=== PATIENT | male | born 1995 | race Caucasian/White ===

== ENCOUNTER 2017-02-20 21:38 | Emergency (ER) | payer OTHER ==
[~2017-02-20] VITALS: Ht 165.1 cm; Wt 68.0 kg
[2017-02-20 21:40] VITALS: BP 139/80
[2017-02-20] MEDS ORDERED: predniSONE 20 MG TABLET PO ONE (22:30)
[2017-02-20 22:49] LABS: INFLUENZA A PATIENT NEGATIVE (NEGATIVE); INFLUENZA B PATIENT NEGATIVE (NEGATIVE)
--- NOTE | 2017-02-20 23:05 | ED.ADGEN ---
Past History Past Medical History: No Pertinent History Past Surgical History: No Surgical History Alcohol Use: Occasionally Drug Use: None Adult General Chief Complaint Chief Complaint " ..I ve got a cough.. and sore throat.." [facility] HPI Patient is a 21 year old male who presents with complaints of sore throat, cough and fever. Patient normally healthy. No history of travel. No history of ill contacts other than family members. Patient is normally healthy. Review of Systems Review of Systems Constitutional: Subjective fever or chills [] Eyes: Denies change in visual acuity, redness, or eye pain [] HENT: History nasal congestion or sore throat [] Respiratory: History cough and wheezing Cardiovascular: No additional information not addressed in HPI [] GI: Denies abdominal pain, nausea, vomiting, bloody stools or diarrhea [] : Denies dysuria or hematuria [] Musculoskeletal: Denies back pain or joint pain [] Integument: Denies rash or skin lesions [] Neurologic: Denies headache, focal weakness or sensory changes [] Endocrine: Denies polyuria or polydipsia [] Family History Family History FAMILY members have colds Current Medications Current Medications Current Medications Medications (Trade) Dose Ordered Sig/Sagar Start Time Stop Time Status Last Admin Dose Admin Prednisone (Prednisone) 50 mg 1X ONCE 02/20/17 22:30 02/20/17 22:31 DC 02/20/17 22:20 50 MG Allergies Allergies Allergies Coded Allergies Type Severity Reaction Last Updated Verified camphor Allergy Unknown 02/20/17 Yes eucalyptus Allergy Unknown 02/20/17 Yes menthol Allergy Unknown 02/20/17 Yes petrolatum,white Allergy Unknown 02/20/17 Yes turpentine oil Allergy Unknown 02/20/17 Yes Physical Exam Physical Exam Constitutional: Well developed, well nourished, no acute distress, non-toxic appearance. [] HENT: Normocephalic, atraumatic, bilateral external ears normal, oropharynx moist, injected pharynx, no oral exudates, nose clear rhinorrhea Eyes: PERRLA, EOMI, conjunctiva normal, no discharge. [] Neck: Normal range of motion, no tenderness, supple, no stridor. [] Cardiovascular:Heart rate regular rhythm, no murmur [] Lungs & Thorax: Bilateral breath sounds equal with few scattered wheezes auscultation [] Abdomen: Bowel sounds normal, soft, no tenderness, no masses, no pulsatile masses. [] Skin: Warm, dry, no erythema, no rash. [] Back: No tenderness, no CVA tenderness. [] Extremities: No tenderness, no cyanosis, no clubbing, ROM intact, no edema. [] Neurologic: Alert and oriented X 3, normal motor function, normal sensory function, no focal deficits noted. [] Psychologic: Affect normal, judgement normal, mood normal. [] Current Patient Data Vital Signs Vital Signs Date Time Temp Pulse Resp B/P (MAP) Pulse Ox O2 Delivery O2 Flow Rate FiO2 02/20/17 21:40 98.7 107 20 98 Room Air Lab Results Laboratory Tests Test 02/20/17 22:00 Influenza Type A (Rapid) Negative (NEGATIVE) Influenza Type B (Rapid) Negative (NEGATIVE) Group A Streptococcus Rapid Negative (NEGATIVE) EKG EKG [] Radiology/Procedures Radiology/Procedures [] Course & Med Decision Making Course & Med Decision Making Pertinent Labs and Imaging studies reviewed. (See chart for details) Negative study for strep and influenza Patient to gargle 4 times with Listerine. Patient take [id number] Benadryl for drainage. Patient take [id number] Tylenol ibuprofen for discomfort. Follow-up primary care. [] Final Impression Final Impression 1. Upper respiratory infection-Viral syndrome[] Problems: Dragon Disclaimer Dragon Disclaimer This electronic medical record was generated, in whole or in part, using a voice recognition dictation system. KT PARDO MD Feb 20, 2017 23:05
== END 2017-02-20 23:00 | disposition home or self-care (01) ==
LOC: ER 21:38
DX: J06.9 Acute upper respiratory infection, unspecified (principal); B34.9 Viral infection, unspecified; Z88.8 Allergy status to other drugs, medicaments and biological substances; Z91.018 Allergy to other foods; Z91.048 Other nonmedicinal substance allergy status
CPT/HCPCS: 87070; 87804; 87880; 99284; J7512

== ENCOUNTER 2017-05-24 16:40 | Emergency (ER) | payer OTHER ==
[~2017-05-24] VITALS: Ht 175.3 cm; Wt 86.2 kg
--- NOTE | 2017-05-24 17:15 | PHYS DOC ---
Past History Past Medical History: No Pertinent History Past Surgical History: No Surgical History Alcohol Use: Occasionally Drug Use: None Adult General Chief Complaint Chief Complaint: SORE THROAT HPI HPI 21-year-old male patient complaining of sore throat for the 2 weeks with subjective fever for the last few days without cough, runny nose, earache, shortness of breath, nausea and vomiting, sick contact. Patient states he gets sore throats frequently. 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 Review of Systems Review of Systems Constitutional: Reports fever Eyes: Denies change in visual acuity, redness, or eye pain [] HENT: Denies nasal congestion , reports sore throat Respiratory: Denies cough or shortness of breath [] Cardiovascular: No additional information not addressed in HPI [] GI: Denies abdominal pain, nausea, vomiting, bloody stools or diarrhea [] : Denies dysuria or hematuria [] Musculoskeletal: Denies back pain or joint pain [] Integument: Denies rash or skin lesions [] Neurologic: Denies headache, focal weakness or sensory changes [] Endocrine: Denies polyuria or polydipsia [] All other systems were reviewed and found to be within normal limits, except as documented in this note. Allergies Allergies Allergies Coded Allergies Type Severity Reaction Last Updated Verified camphor Allergy Unknown 02/20/17 Yes eucalyptus Allergy Unknown 02/20/17 Yes menthol Allergy Unknown 02/20/17 Yes petrolatum,white Allergy Unknown 02/20/17 Yes turpentine oil Allergy Unknown 02/20/17 Yes Physical Exam Physical Exam Constitutional: Well developed, well nourished, mild distress, non-toxic appearance. [] HENT: Normocephalic, atraumatic, bilateral external ears normal, oropharynx moist, bilateral tonsilar enlargement with exudates, nose normal. [] Eyes: PERRLA, EOMI, conjunctiva normal, no discharge. [] Neck: Normal range of motion, no tenderness, supple, no stridor, cervical lymphadenopathy. [] Cardiovascular:Heart rate regular rhythm, no murmur [] Lungs & Thorax: Bilateral breath sounds clear to auscultation [] Abdomen: Bowel sounds normal, soft, no tenderness, no masses, no pulsatile masses. [] Skin: Warm, dry, no erythema, no rash. [] Back: No tenderness, no CVA tenderness. [] Extremities: No tenderness, no cyanosis, no clubbing, ROM intact, no edema. [] Neurologic: Alert and oriented X 3, normal motor function, normal sensory function, no focal deficits noted. [] Psychologic: Affect normal, judgement normal, mood normal. [] EKG EKG [] Radiology/Procedures Radiology/Procedures [] Course & Med Decision Making Course & Med Decision Making Pertinent Labs and Imaging studies reviewed. (See chart for details) [] Dragon Disclaimer Dragon Disclaimer This electronic medical record was generated, in whole or in part, using a voice recognition dictation system. Departure Departure: Impression: Primary Impression: Strep pharyngitis Disposition: HOME, SELF-CARE (At 1750) Condition: IMPROVED Referrals: PCP,NO (PCP) Patient Instructions: Strep Throat MARIA DE JESUS GILES MD May 24, 2017 17:15
[2017-05-24] MEDS ORDERED: PENICILLIN G BENZATHINE LA 1,200,000 UNIT/2 ML DISP.SYRIN. IM ONE (17:30)
[2017-05-24] MEDS ORDERED: IBUPROFEN 800 MG TABLET. PO ONE (17:30)
[2017-05-24 18:14] VITALS: BP 128/62
== END 2017-05-24 18:00 | disposition home or self-care (01) ==
LOC: ER 16:40
DX: J02.0 Streptococcal pharyngitis (principal); Z88.8 Allergy status to other drugs, medicaments and biological substances; Z91.048 Other nonmedicinal substance allergy status
CPT/HCPCS: 87880; 96372; 99283; J0561

== ENCOUNTER 2017-09-08 20:33 | Emergency (ER) | payer OTHER ==
[~2017-09-08] VITALS: Ht 175.3 cm; Wt 90.7 kg
[2017-09-08 20:47] VITALS: BP 129/79
[2017-09-08] MEDS ORDERED: TRAM-48 PO (21:08)
[2017-09-08] MEDS ORDERED: IBUP600T16 PO (21:08)
[2017-09-08] MEDS ORDERED: CEPH-264 PO (21:08)
--- NOTE | 2017-09-08 21:09 | PHYS DOC ---
Past History Past Medical History: No Pertinent History Past Surgical History: No Surgical History Alcohol Use: None Drug Use: None Adult General Chief Complaint Chief Complaint: DENTAL PROBLEM HPI HPI Patient is a 22-year-old gentleman who presents here today with his pain to his right upper molar with significant cavitary lesion. Patient reports he does not have an appointment for a dentist until 1 month now. Patient is requesting assistance for pain. Patient reports swelling to his gums and swelling to his right cheek. Patient denies any other symptomology. Patient has any fevers shakes chills nausea vomiting diarrhea. Patient has any difficulty opening her children. Review of systems: Constitutional: Denies fever or chills Eyes: Denies change in visual acuity, redness, or eye pain HENT: Denies nasal congestion or sore throat All other review systems are negative except as documented in the history of present illness portion. Physical exam: Constitutional: Well developed, well nourished, no acute distress, non-toxic appearance. HENT: Normocephalic, atraumatic, bilateral external ears normal, nose normal. Eyes: EOMI, conjunctiva normal, no discharge. Neck: Normal range of motion, no tenderness, supple, no stridor. Cardiovascular:Heart rate regular rhythm Lungs & Thorax: Bilateral breath sounds clear to auscultation no respiratory distress Abdomen: Bowel sounds normal, soft, no tenderness, no masses, no pulsatile masses. Skin: Warm, dry, no erythema, no rash. Back: No tenderness, no CVA tenderness. Extremities: No tenderness, no cyanosis, no clubbing, ROM intact, no edema. Neurologic: Alert and oriented X 3, normal motor function, normal sensory function, no focal deficits noted. Psychologic: Affect normal, judgement normal, mood normal. Patient's ER physical exam is significant for significant cavity to his right upper molar with soft tissue swelling to his right cheek. Patient does have some mild erythematous gumline. Assessment and plan 22-year-old with dental abscess and cavitary lesions presents to the ER secondary to dental pain. Patient be given Keflex and Ultram and ibuprofen to assist with his pain and encouraged to make an appointment with dental 911 as soon as possible for definitive management. Patient not have any evidence of trismus or abscess of the muscles of mastication. Current Medications Current Medications Current Medications Medications (Trade) Dose Ordered Sig/Sagar Start Time Stop Time Status Last Admin Dose Admin Cephalexin HCl (Keflex) 500 mg 1X ONCE 09/08/17 21:15 09/08/17 21:16 Ibuprofen (Motrin) 600 mg 1X ONCE 09/08/17 21:15 09/08/17 21:16 Tramadol HCl (Ultram) 50 mg 1X ONCE 09/08/17 21:15 09/08/17 21:16 Allergies Allergies Allergies Coded Allergies Type Severity Reaction Last Updated Verified camphor Allergy Unknown 02/20/17 Yes eucalyptus Allergy Unknown 02/20/17 Yes menthol Allergy Unknown 02/20/17 Yes petrolatum,white Allergy Unknown 02/20/17 Yes turpentine oil Allergy Unknown 02/20/17 Yes Current Patient Data Vital Signs Vital Signs Date Time Temp Pulse Resp B/P (MAP) Pulse Ox O2 Delivery O2 Flow Rate FiO2 09/08/17 20:47 98.1 86 18 98 Room Air EKG EKG [] Radiology/Procedures Radiology/Procedures [] Course & Med Decision Making Course & Med Decision Making Pertinent Labs and Imaging studies reviewed. (See chart for details) [] Dragon Disclaimer Dragon Disclaimer This electronic medical record was generated, in whole or in part, using a voice recognition dictation system. Departure Departure: Impression: Primary Impression: Dental cavity Additional Impression: Dental abscess Disposition: 01 HOME, SELF-CARE Condition: IMPROVED Referrals: PCP,JANEEN (PCP) Patient Instructions: Dental Abscess Additional Instructions: Please follow up with a dentist of your choice as soon as possible. Scripts Tramadol Hcl (ULTRAM) 50 Mg Tablet 50 MG PO PRN Q6HRS Y for PAIN, #20 TAB Prov: GLENDA DAILEY MD 09/08/17 Cephalexin (KEFLEX) 500 Mg Capsule 1 CAP PO TID, #30 CAP Prov: GLENDA DAILEY MD 09/08/17 Ibuprofen (IBUPROFEN) 600 Mg Tablet 600 MG PO QID Y for PAIN, #20 Prov: GLENDA DAILEY MD 09/08/17 Problem Qualifiers GLENDA DAILEY MD Sep 08, 2017 21:09
[2017-09-08] MEDS ORDERED: traMADol 50 MG TABLET PO ONE (21:15)
[2017-09-08] MEDS ORDERED: IBUPROFEN 600 MG TABLET. PO ONE (21:15)
[2017-09-08] MEDS ORDERED: CEPHALEXIN 250 MG CAPSULE PO ONE (21:15)
== END 2017-09-08 21:19 | disposition home or self-care (01) ==
LOC: ER 20:33
DX: K02.9 Dental caries, unspecified (principal); K04.7 Periapical abscess without sinus; Z88.8 Allergy status to other drugs, medicaments and biological substances; Z91.048 Other nonmedicinal substance allergy status
CPT/HCPCS: 99284

== ENCOUNTER 2017-11-10 14:04 | Emergency (ER) | payer OTHER ==
[~2017-11-10] VITALS: Ht 175.3 cm; Wt 82.6 kg
[~2017-11-10 14:04] MED LIST: CEPH-264 PO; IBUP600T16 PO; TRAM-48 PO
[2017-11-10] MEDS ORDERED: FAMOTIDINE 20 MG TABLET PO ONE (14:45)
[2017-11-10] MEDS ORDERED: HYDROcodone/APAP 5/325MG 1 TAB TABLET PO ONE (14:45)
[2017-11-10 14:51] LABS: BASO % 1 % (0-3); EOS # 0.1 x10^3/uL (0.0-0.7); EOS % 2 % (0-3); HEMATOCRIT 41.5 % (39.0-53.0); HEMOGLOBIN 14.3 g/dL (13.0-17.5); LYMPH # 2.1 x10^3/uL (1.0-4.8); LYMPH % 34 % (24-48); MEAN CORPUSCULAR HEMOGLOBIN 33 pg (25-35); MEAN CORPUSCULAR HGB CONC 35 g/dL (31-37); MEAN CORPUSCULAR VOLUME 95 fL (79-100); MONO # 0.4 x10^3/uL (0.0-1.1); MONO % 6 % (0-9); NEUT # 3.6 x10^3uL (1.8-7.7); NEUT % 58 % (31-73); PLATELET COUNT 284 x10^3/uL (140-400); RED BLOOD COUNT 4.37 x10^6/uL (4.30-5.70); RED CELL DISTRIBUTION WIDTH 12.2 % (11.5-14.5); WHITE BLOOD COUNT 6.2 x10^3/uL (4.0-11.0)
[2017-11-10 15:03] LABS: ALBUMIN 3.9 g/dL (3.4-5.0); CALCIUM 9.1 mg/dL (8.5-10.1); DIRECT BILIRUBIN 0.1 mg/dL (0.0-0.2); GFR 94.3; POTASSIUM 3.7 mmol/L (3.5-5.1); TOTAL BILIRUBIN 0.8 mg/dL (0.2-1.0); TOTAL PROTEIN 7.9 g/dL (6.4-8.2)
--- NOTE | 2017-11-10 15:19 | PHYS DOC ---
Past History Past Medical History: No Pertinent History Past Surgical History: No Surgical History Alcohol Use: Rarely Drug Use: None Adult General Chief Complaint Chief Complaint: ABDOMINAL PAIN HPI HPI 22-year-old male presenting the emergency department today with sharp epigastric pain when he was moving heavy laundry around well at work. The pain is nonradiating intermittent and is worse with movement. He denies fevers or chills. He denies any nausea or vomiting. Review of systems is negative for chest pain shortness of breath fevers chills diarrhea constipation nausea or vomiting. All other review of systems is negative unless otherwise noted in history of present illness. ED course: 22-year-old male presenting with epigastric abdominal pain. Vitals unremarkable. Blood work unremarkable. Abdomen is soft and nontender without rebound tenderness or guarding. Negative McBurney's point. Negative Mukherjee sign.The patient has been examined and was not found to have an emergency medical condition. The patient was then discharged home in stable condition to follow up with their primary care physician over the next 2-3 days. They were to return if their symptoms worsened or if they were concerned for any reason. [id number] discharge instructions and return precautions were given. Patient' s questions were answered to their satisfaction. Patient is comfortable with plan. Review of Systems Review of Systems SEE ABOVE. Current Medications Current Medications Current Medications Medications (Trade) Dose Ordered Sig/Sagar Start Time Stop Time Status Last Admin Dose Admin Acetaminophen/ Hydrocodone Bitart (Lortab 5/325) 2 tab 1X ONCE 11/10/17 14:45 11/10/17 14:46 DC 11/10/17 14:52 2 TAB Famotidine (Pepcid) 20 mg 1X ONCE 11/10/17 14:45 11/10/17 14:46 DC 11/10/17 14:50 20 MG Allergies Allergies Allergies Coded Allergies Type Severity Reaction Last Updated Verified camphor Allergy Unknown 02/20/17 Yes eucalyptus Allergy Unknown 02/20/17 Yes menthol Allergy Unknown 02/20/17 Yes petrolatum,white Allergy Unknown 02/20/17 Yes turpentine oil Allergy Unknown 02/20/17 Yes Physical Exam Physical Exam SEE ABOVE Constitutional: Well developed, well nourished, no acute distress, non-toxic appearance. [] HENT: Normocephalic, atraumatic, bilateral external ears normal, oropharynx moist, no oral exudates, nose normal. [] Eyes: PERRLA, EOMI, conjunctiva normal, no discharge. [] Neck: Normal range of motion, no tenderness, supple, no stridor. [] Cardiovascular:Heart rate regular rhythm, no murmur [] Lungs & Thorax: Bilateral breath sounds clear to auscultation [] Abdomen: Bowel sounds normal, soft, no tenderness, no masses, no pulsatile masses. [] Skin: Warm, dry, no erythema, no rash. [] Back: No tenderness, no CVA tenderness. [] Extremities: No tenderness, no cyanosis, no clubbing, ROM intact, no edema. [] Neurologic: Alert and oriented X 3, normal motor function, normal sensory function, no focal deficits noted. [] Psychologic: Affect normal, judgement normal, mood normal. [] Current Patient Data Vital Signs Vital Signs Date Time Temp Pulse Resp B/P (MAP) Pulse Ox O2 Delivery O2 Flow Rate FiO2 11/10/17 14:52 16 11/10/17 14:14 98.8 103 97 Room Air Lab Results Laboratory Tests Test 11/10/17 14:37 White Blood Count 6.2 x10^3/uL (4.0-11.0) Red Blood Count 4.37 x10^6/uL (4.30-5.70) Hemoglobin 14.3 g/dL (13.0-17.5) Hematocrit 41.5 % (39.0-53.0) Mean Corpuscular Volume 95 fL (79-100) Mean Corpuscular Hemoglobin 33 pg (25-35) Mean Corpuscular Hemoglobin Concent 35 g/dL (31-37) Red Cell Distribution Width 12.2 % (11.5-14.5) Platelet Count 284 x10^3/uL (140-400) Neutrophils (%) (Auto) 58 % (31-73) Lymphocytes (%) (Auto) 34 % (24-48) Monocytes (%) (Auto) 6 % (0-9) Eosinophils (%) (Auto) 2 % (0-3) Basophils (%) (Auto) 1 % (0-3) Neutrophils # (Auto) 3.6 x10^3uL (1.8-7.7) Lymphocytes # (Auto) 2.1 x10^3/uL (1.0-4.8) Monocytes # (Auto) 0.4 x10^3/uL (0.0-1.1) Eosinophils # (Auto) 0.1 x10^3/uL (0.0-0.7) Basophils # (Auto) 0.0 x10^3/uL (0.0-0.2) Sodium Level 139 mmol/L (136-145) Potassium Level 3.7 mmol/L (3.5-5.1) Chloride Level 104 mmol/L (98-107) Carbon Dioxide Level 26 mmol/L (21-32) Anion Gap 9 (6-14) Blood Urea Nitrogen 8 mg/dL (8-26) Creatinine 1.0 mg/dL (0.7-1.3) Estimated GFR (Cockcroft-Gault) 94.3 Glucose Level 113 mg/dL (70-99) H Calcium Level 9.1 mg/dL (8.5-10.1) Total Bilirubin 0.8 mg/dL (0.2-1.0) Direct Bilirubin 0.1 mg/dL (0.0-0.2) Aspartate Amino Transferase (AST) 22 U/L (15-37) Alanine Aminotransferase (ALT) 29 U/L (16-63) Alkaline Phosphatase 91 U/L (46-116) Total Protein 7.9 g/dL (6.4-8.2) Albumin 3.9 g/dL (3.4-5.0) Lipase 233 U/L (73-393) EKG EKG [] Radiology/Procedures Radiology/Procedures [] Course & Med Decision Making Course & Med Decision Making Pertinent Labs and Imaging studies reviewed. (See chart for details) [] Dragon Disclaimer Dragon Disclaimer This electronic medical record was generated, in whole or in part, using a voice recognition dictation system. Departure Departure: Impression: Primary Impression: Epigastric abdominal pain Disposition: HOME, SELF-CARE Condition: STABLE Referrals: PCP,JANEEN (PCP) JESSE DIAS MD Patient Instructions: Abdominal Pain (Nonspecific) Additional Instructions: Thank you for allowing us to participate in your care today. Followup with your primary care physician in 3 days if your symptoms do not improve. Call your Primary Doctor tomorrow and inform them of your visit today. If you do not have a primary care provider you can ask for a list of our primary care providers. Return to the emergency department you have any new or concerning findings. This should be evaluated by the primary care physician and any necessary consulting services for continued management within a few days after discharge. Return to emergency room if you have any new or concerning symptoms including but not limited to fever, chills, nausea, vomiting, intractable pain, any new rashes, chest pain, shortness of air, uncontrolled bleeding, difficulty breathing, and/or vision loss. If at any time, you are having difficulty getting into your primary care doctor or a specialist, return to the emergency department. JULIANE CHU MD November 10, 2017 15:19
[2017-11-10 15:47] LABS: BILIRUBIN,URINE NEG (NEG); CLARITY,URINE CLEAR; COLOR,URINE AMBER; GLUCOSE,URINE NEG (NEG); NITRITE,URINE NEG (NEG); UROBILINOGEN,URINE 2 mg/dL (0.2 mg/dL)
[2017-11-10 15:48] LABS: BACTERIA,URINE 0 /HPF (0-FEW); SQUAMOUS EPITHELIAL CELL,UR FEW /LPF
[2017-11-10 15:55] VITALS: BP 118/78
== END 2017-11-10 16:00 | disposition home or self-care (01) ==
LOC: ER 14:04
DX: R10.13 Epigastric pain (principal); Z88.8 Allergy status to other drugs, medicaments and biological substances; Z91.048 Other nonmedicinal substance allergy status
CPT/HCPCS: 36415; 80048; 80076; 81001; 83690; 85025; 99284

== ENCOUNTER 2018-05-30 15:13 | Emergency (ER) | payer MEDICAID, OTHER ==
[~2018-05-30] VITALS: Ht 175.3 cm; Wt 84.4 kg
[2018-05-30] MEDS ORDERED: oxyCODONE/APAP 10/325 1 TAB TABLET PO ONE (16:00)
[2018-05-30] MEDS ORDERED: IBUPROFEN 600 MG TABLET. PO ONE (16:00)
[2018-05-30 16:04] LABS: INFLUENZA A PATIENT NEGATIVE (NEGATIVE); INFLUENZA B PATIENT NEGATIVE (NEGATIVE)
--- NOTE | 2018-05-30 16:13 | ED.ADGEN ---
Past History Past Medical History: No Pertinent History Past Surgical History: Other Additional Smoking Information: 1/2 PACK/DAY Alcohol Use: None Drug Use: None Adult General Chief Complaint Chief Complaint Sore throat, body aches HPI HPI Patient is a 22-year-old Afro-[place] male presents with sore throat, body aches, cough, rhinorrhea, subjective fever and chills. Eyes headache, neck pain , neck stiffness, rash. No nausea vomiting. No abdominal pain, no diarrhea. Other acute symptoms or complaints. Multiple recent sick exposures including family members at home. No denies chronic illnesses.[] Review of Systems Review of Systems Review of symptoms as prescribed. All other review symptoms are negative. All other systems were reviewed and found to be within normal limits, except as documented in this note. Current Medications Current Medications Current Medications Medications (Trade) Dose Ordered Sig/Sagar Start Time Stop Time Status Last Admin Dose Admin Ibuprofen (Motrin) 600 mg 1X ONCE 05/30/18 16:00 05/30/18 16:01 DC 05/30/18 16:07 600 MG Oxycodone/ Acetaminophen (Percocet 10/325) 1 tab 1X ONCE 05/30/18 16:00 05/30/18 16:01 DC 05/30/18 16:07 1 TAB Allergies Allergies Allergies Coded Allergies Type Severity Reaction Last Updated Verified camphor Allergy Unknown 02/20/17 Yes eucalyptus Allergy Unknown 02/20/17 Yes menthol Allergy Unknown 02/20/17 Yes petrolatum,white Allergy Unknown 02/20/17 Yes turpentine oil Allergy Unknown 02/20/17 Yes Physical Exam Physical Exam Constitutional: Well developed, well nourished, no acute distress, non-toxic appearance. [] HENT: Normocephalic, atraumatic, bilateral external ears normal, oropharynx, pharyngeal erythema no swelling or exudate., nose, congestion, clear rhinorrhea. [] Eyes: PERRLA, EOMI, conjunctiva normal, no discharge. [] Neck: Normal range of motion, no tenderness, supple, no stridor. Submandibular lymphadenopathy[] Cardiovascular:Heart rate regular rhythm, no murmur [] Lungs & Thorax: Bilateral breath sounds clear to auscultation [] Abdomen: Bowel sounds normal, soft, no tenderness. [] Skin: Warm, dry, no erythema, no rash. [] Back: No tenderness, no CVA tenderness. [] Extremities: No tenderness, no cyanosis, no clubbing, ROM intact, no edema. [] Neurologic: Alert and oriented X 3, normal motor function, normal sensory function, no focal deficits noted. [] Psychologic: Affect normal, judgement normal, mood normal. [] Current Patient Data Vital Signs Vital Signs Date Time Temp Pulse Resp B/P (MAP) Pulse Ox O2 Delivery O2 Flow Rate FiO2 05/30/18 15:20 98.7 98 20 99 Room Air Lab Results Laboratory Tests Test 05/30/18 15:35 Influenza Type A (Rapid) Negative (NEGATIVE) Influenza Type B (Rapid) Negative (NEGATIVE) EKG EKG [] Radiology/Procedures Radiology/Procedures [] Course & Med Decision Making Course & Med Decision Making Pertinent Labs and Imaging studies reviewed. (See chart for details) [flu-Like illness. Stable vital signs. Recommend supportive care with PCP follow -up. Return precautions reviewed.] Final Impression Final Impression []Influenza-like illness Dragtaran Disclaimer Courtney Disclaimer This electronic medical record was generated, in whole or in part, using a voice recognition dictation system. ANGELINA PAN DO May 30, 2018 16:13
[2018-05-30] MEDS ORDERED: HYDR-3165 PO (16:15)
[2018-05-30 16:20] VITALS: BP 123/72
== END 2018-05-30 16:20 | disposition home or self-care (01) ==
LOC: ER 15:13
DX: J11.1 Influenza due to unidentified influenza virus with other respiratory manifestations (principal); F17.200 Nicotine dependence, unspecified, uncomplicated; Z91.048 Other nonmedicinal substance allergy status
CPT/HCPCS: 87804; 99283

== ENCOUNTER 2018-06-15 00:17 | Emergency (ER) | payer MEDICAID, OTHER ==
[~2018-06-15] VITALS: Ht 175.3 cm; Wt 80.7 kg
[~2018-06-15 00:17] MED LIST changes: +HYDR-3165 PO
[2018-06-15 00:25] VITALS: BP 147/97
--- NOTE | 2018-06-15 00:48 | RAD ---
Left long finger 3 views 06/14/2018. Reason for exam: Dislocation. There is dislocation of the middle phalanx of the long finger medially and posteriorly. No fracture is visible. IMPRESSION: PIP dislocation. Electronically signed by: Abdoulaye Chisholm Jr., MD (06/15/2018 12:43 AM) [id number]
--- NOTE | 2018-06-15 01:04 | PHYS DOC ---
Past History Past Medical History: No Pertinent History Past Surgical History: Other Additional Smoking Information: 1 PPD Alcohol Use: None Drug Use: None Adult General Chief Complaint Chief Complaint: FINGER INJURY HPI HPI 23-year-old male presents with left middle finger pain. The patient was running down the stairs when he started to slip as he fell he reached out and grabbed the railing. His left middle finger got caught somehow and pulled laterally. When the patient looked at his finger he noticed that it was deformed. He was concerned for fracture so he came straight to the emergency room. Patient has not had previous injuries on this hand. He denies any other injuries or complaints. Review of Systems Review of Systems Constitutional: Denies fever or chills [] Eyes: Denies change in visual acuity, redness, or eye pain [] HENT: Denies nasal congestion or sore throat [] Respiratory: Denies cough or shortness of breath [] Cardiovascular: No additional information not addressed in HPI [] GI: Denies abdominal pain, nausea, vomiting, bloody stools or diarrhea [] : Denies dysuria or hematuria [] Musculoskeletal: Denies back pain or joint pain [] Integument: Denies rash or skin lesions [] Neurologic: Denies headache, focal weakness or sensory changes [] Endocrine: Denies polyuria or polydipsia [] All other systems were reviewed and found to be within normal limits, except as documented in this note. Allergies Allergies Allergies Coded Allergies Type Severity Reaction Last Updated Verified camphor Allergy Unknown 02/20/17 Yes eucalyptus Allergy Unknown 02/20/17 Yes menthol Allergy Unknown 02/20/17 Yes petrolatum,white Allergy Unknown 02/20/17 Yes turpentine oil Allergy Unknown 02/20/17 Yes Physical Exam Physical Exam Constitutional: Well developed, well nourished, no acute distress, non-toxic appearance. [] HENT: Normocephalic, atraumatic, bilateral external ears normal, oropharynx moist, no oral exudates, nose normal. [] Eyes: PERRLA, EOMI, conjunctiva normal, no discharge. [] Neck: Normal range of motion, no tenderness, supple, no stridor. [] Cardiovascular:Heart rate regular rhythm, no murmur [] Lungs & Thorax: Bilateral breath sounds clear to auscultation [] Abdomen: Bowel sounds normal, soft, no tenderness, no masses, no pulsatile masses. [] Skin: Warm, dry, no erythema, no rash. [] Back: No tenderness, no CVA tenderness. [] Extremities: Deformity of the left middle finger at the PIP. Pain with palpation [] Neurologic: Alert and oriented X 3, normal motor function, normal sensory function, no focal deficits noted. [] Psychologic: Affect normal, judgement normal, mood normal. [] Current Patient Data Vital Signs Vital Signs Date Time Temp Pulse Resp B/P (MAP) Pulse Ox O2 Delivery O2 Flow Rate FiO2 06/15/18 00:25 98.3 89 99 Room Air EKG EKG [] Radiology/Procedures Radiology/Procedures [] Impressions: Left long finger 3 views 06/14/2018. Reason for exam: Dislocation. There is dislocation of the middle phalanx of the long finger medially and posteriorly. No fracture is visible. IMPRESSION: PIP dislocation. Electronically signed by: Abdoulaye Don Jr., MD (06/15/2018 12:43 AM) [facility] [place] [facility] [place] DICTATED AND SIGNED BY: ABDOULAYE DON Jr, MD DATE: 06/15/18 0043 CC: ANGELINA CORONEL DO; PCP,NO Course & Med Decision Making Course & Med Decision Making Pertinent Labs and Imaging studies reviewed. (See chart for details) The patient's x-ray showed dislocation of the third digit of the left hand. I was able to do a local digital block and relocate the finger. See note below for more details. The patient is stable for discharge at this time. Finger dislocation note: I obtained verbal consent from the patient to reduce his dislocation of the left third digit at the PIP joint. I anesthetized the finger with a digital block. A total of 4 mL of 1% lidocaine without epinephrine was used. Once good anesthesia was achieved, I was able to apply gentle distal traction and then rotated the distal segment laterally. The finger went back into place without complication. The patient tolerated the procedure well. An aluminum and foam splint was applied to the finger for stability. Neurovascularly intact. [] Dragon Disclaimer Dragon Disclaimer This electronic medical record was generated, in whole or in part, using a voice recognition dictation system. Departure Departure: Impression: Primary Impression: Dislocation of left middle finger Disposition: 01 HOME, SELF-CARE Condition: IMPROVED Patient Instructions: Finger Dislocation, [id number]-[id number] ANGELINA CORONEL DO Jun 15, 2018 01:04
== END 2018-06-15 01:01 | disposition home or self-care (01) ==
LOC: ER 00:17
DX: S63.283A Dislocation of proximal interphalangeal joint of left middle finger, initial encounter (principal); F17.200 Nicotine dependence, unspecified, uncomplicated; Z88.8 Allergy status to other drugs, medicaments and biological substances; Z91.048 Other nonmedicinal substance allergy status; W10.9XXA Fall (on) (from) unspecified stairs and steps, initial encounter; Y93.02 Activity, running; Y92.89 Other specified places as the place of occurrence of the external cause; Y99.8 Other external cause status
CPT/HCPCS: 26770; 73140; 99284

== ENCOUNTER 2019-05-03 11:46 | Emergency (ER) | payer OTHER ==
[~2019-05-03] VITALS: Ht 175.3 cm; Wt 77.5 kg
[2019-05-03] MEDS ORDERED: CLIN300C8 PO (12:47)
--- NOTE | 2019-05-03 12:47 | PHYS DOC ---
Past History Past Medical History: No Pertinent History Past Surgical History: Other Additional Past Surgical Histo: right wrist fx repair Alcohol Use: Occasionally Drug Use: None Adult General Chief Complaint Chief Complaint: DENTAL PROBLEM HPI HPI 23-year-old male presents with left upper dental abscess. The patient has had a bad tooth there for some time. He has removal of 90 scheduled, but is a month away. Over the last 2 days, the patient noticed this area swelled up and his stay that way. He is concerned about infection. He denies fever or chills. Review of Systems Review of Systems Constitutional: Denies fever or chills [] Eyes: Denies change in visual acuity, redness, or eye pain [] HENT: Denies nasal congestion or sore throat. Dental abscess [] Respiratory: Denies cough or shortness of breath [] Cardiovascular: No additional information not addressed in HPI [] GI: Denies abdominal pain, nausea, vomiting, bloody stools or diarrhea [] : Denies dysuria or hematuria [] Musculoskeletal: Denies back pain or joint pain [] Integument: Denies rash or skin lesions [] Neurologic: Denies headache, focal weakness or sensory changes [] Endocrine: Denies polyuria or polydipsia [] All other systems were reviewed and found to be within normal limits, except as documented in this note. Current Medications Current Medications Current Medications Medications (Trade) Dose Ordered Sig/Sagar Start Time Stop Time Status Last Admin Dose Admin Clindamycin HCl (Cleocin) 300 mg 1X ONCE 05/03/19 13:00 05/03/19 13:01 Allergies Allergies Allergies Coded Allergies Type Severity Reaction Last Updated Verified camphor Allergy Unknown 05/03/19 Yes eucalyptus Allergy Unknown 05/03/19 Yes menthol Allergy Unknown 05/03/19 Yes petrolatum,white Allergy Unknown 05/03/19 Yes turpentine oil Allergy Unknown 05/03/19 Yes Physical Exam Physical Exam Constitutional: Well developed, well nourished, no acute distress, non-toxic appearance. [] HENT: Normocephalic, atraumatic, bilateral external ears normal, oropharynx moist, no oral exudates, nose normal. Multiple dental caries. 1 cm abscess of the left upper quadrant medial with fluctuance [] Eyes: PERRLA, EOMI, conjunctiva normal, no discharge. [] Neck: Normal range of motion, no tenderness, supple, no stridor. [] Cardiovascular:Heart rate regular rhythm, no murmur [] Lungs & Thorax: Bilateral breath sounds clear to auscultation [] Abdomen: Bowel sounds normal, soft, no tenderness, no masses, no pulsatile masses. [] Skin: Warm, dry, no erythema, no rash. [] Back: No tenderness, no CVA tenderness. [] Extremities: No tenderness, no cyanosis, no clubbing, ROM intact, no edema. [] Neurologic: Alert and oriented X 3, normal motor function, normal sensory function, no focal deficits noted. [] Psychologic: Affect normal, judgement normal, mood normal. [] Current Patient Data Vital Signs Vital Signs Date Time Temp Pulse Resp B/P (MAP) Pulse Ox O2 Delivery O2 Flow Rate FiO2 05/03/19 11:50 98.5 89 18 98 Room Air EKG EKG [] Radiology/Procedures Radiology/Procedures [] Course & Med Decision Making Course & Med Decision Making Pertinent Labs and Imaging studies reviewed. (See chart for details) I was able to drink patient's abscess be I&D. See note below for more details. I give the patient 3 mg of clindamycin and a prescription for the same at home. He is stable for discharge at this time. [] Dragon Disclaimer Dragon Disclaimer This electronic medical record was generated, in whole or in part, using a voice recognition dictation system. Incision and Drainage Indication: Left upper quadrant dental abscess. Procedure: Verbal consent was obtained from the patient for incision and drainage of his left upper quadrant dental abscess. No anesthesia was used at patient's request. I made a 3 mm incision with a #11 blade. There was purulent material expressed. A wound culture was sent. I note the wound until the abscess was empty. No dressing was applied. The patient tolerated the procedure well. Complications: None Departure Departure: Impression: Primary Impression: Dental abscess Disposition: 01 HOME, SELF-CARE Condition: STABLE Referrals: PCP,NO (PCP) Patient Instructions: Dental Abscess Scripts Clindamycin Hcl (CLINDAMYCIN HCL) 300 Mg Capsule 1 CAP PO TID for dental abscess, #21 CAP Prov: ANGELINA CORONEL DO 05/03/19 ANGELINA CORONEL DO May 03, 2019 12:47
[2019-05-03 12:50] VITALS: BP 122/77
[2019-05-03] MEDS ORDERED: CLINDAMYCIN HCL 150 MG CAPSULE PO ONE (13:00)
== END 2019-05-03 12:50 | disposition home or self-care (01) ==
LOC: ER 11:46
DX: K04.7 Periapical abscess without sinus (principal); Z88.8 Allergy status to other drugs, medicaments and biological substances; Z91.048 Other nonmedicinal substance allergy status
CPT/HCPCS: 41800; 87070; 99283

== ENCOUNTER 2021-01-08 15:03 | Emergency (ER) | payer OTHER ==
[~2021-01-08] VITALS: Ht 188 cm; Wt 75.0 kg
[~2021-01-08 15:03] MED LIST changes: +CLIN300C9 PO
[2021-01-08] MEDS ORDERED: IBUPROFEN 600 MG TABLET. PO ONE (15:15)
[2021-01-08 15:19] VITALS: BP 115/66
[2021-01-08] MEDS ORDERED: PENI500T PO (15:29)
--- NOTE | 2021-01-08 15:43 | PHYS DOC ---
Past History Past Medical History: No Pertinent History Past Surgical History: Other Additional Past Surgical Histo: right wrist fx repair Alcohol Use: Occasionally Drug Use: None General Adult EDM: Chief Complaint: DENTAL PROBLEM HPI: HPI: Patient is a 25-year-old male presents with right sided lower dental pain. Patient states that he started having pain this morning. Patient called his dentist and made an appointment for tomorrow. Patient does report some right- sided facial swelling. Patient's been taking Tylenol at home which is helped with pain. "I am not sure which tooth it is because I have pretty bad teeth on my lower side". Patient denies medical history. Review of Systems: Review of Systems: Constitutional: Denies fever or chills Eyes: Denies change in visual acuity HENT: Right-sided facial swelling, right more dental pain Respiratory: Denies cough or shortness of breath Cardiovascular: Denies chest pain or edema GI: Denies abdominal pain, nausea, vomiting, bloody stools or diarrhea : Denies dysuria Musculoskeletal: Denies back pain or joint pain Integument: Denies rash Neurologic: Denies headache, focal weakness or sensory changes Endocrine: Denies polyuria or polydipsia Lymphatic: Denies swollen glands Psychiatric: Denies depression or anxiety Allergies: Allergies: Allergies Coded Allergies Type Severity Reaction Last Updated Verified camphor Allergy Unknown 05/03/19 Yes eucalyptus Allergy Unknown 05/03/19 Yes menthol Allergy Unknown 05/03/19 Yes petrolatum,white Allergy Unknown 05/03/19 Yes turpentine oil Allergy Unknown 05/03/19 Yes Physical Exam: PE: Constitutional: Well developed, well nourished, no acute distress, non-toxic appearance. [] HENT: Normocephalic, atraumatic, bilateral external ears normal, oropharynx moist, no oral exudates, nose normal. [] Eyes: PERRLA, EOMI, conjunctiva normal, no discharge. [] Neck: Normal range of motion, no tenderness, supple, no stridor. [] Cardiovascular:Heart rate regular rhythm, no murmur [] Lungs & Thorax: Bilateral breath sounds clear to auscultation [] Abdomen: Bowel sounds normal, soft, no tenderness, no masses, no pulsatile masses. [] Skin: Warm, dry, no erythema, no rash. [] Back: No tenderness, no CVA tenderness. [] Extremities: No tenderness, no cyanosis, no clubbing, ROM intact, no edema. [] Neurologic: Alert and oriented X 3, normal motor function, normal sensory function, no focal deficits noted. [] Psychologic: Affect normal, judgement normal, mood normal. [] EKG: EKG: [] Radiology/Procedures: Radiology/Procedures: [] Heart Score: C/O Chest Pain: No Risk Factors: Risk Factors: DM, Current or recent (<one month) smoker, HTN, HLP, family history of CAD, obesity. Risk Scores: Score 0 - 3: 2.5% MACE over next 6 weeks - Discharge Home Score 4 - 6: 20.3% MACE over next 6 weeks - Admit for Clinical Observation Score 7 - 10: 72.7% MACE over next 6 weeks - Early Invasive Strategies Course & Med Decision Making: Course & Med Decision Making Pertinent Labs and Imaging studies reviewed. (See chart for details) [] 25-year-old male who presents with dental pain. Patient reports he has a appointment tomorrow with a dentist. Patient given 600 mg of ibuprofen, prescription for penicillin VK. Advised patient to keep his dental appointment tomorrow and to take ibuprofen for discomfort. Dragon Disclaimer: coComment Disclaimer: This electronic medical record was generated, in whole or in part, using a voice recognition dictation system. Departure Departure: Impression: Primary Impression: Pain, dental Disposition: HOME / SELF CARE / HOMELESS Condition: STABLE Referrals: PCP,JANEEN (PCP) Patient Instructions: Dental Caries Additional Instructions: The emergency room for dental pain. I am sending you home with prescription. please take prescription in full. Please keep your appointment that you have sc heduled tomorrow to see the dentist. If you have worsening symptoms or concerns please return to emergency room. EMERGENCY DEPARTMENT GENERAL DISCHARGE INSTRUCTIONS Thank you for coming to [facility] (ED) today and trusting us with you care. We trust that you had a positivie experience in our Emergency Department. If you wish to speak to the department management, you may call the director at [phone]. YOUR FOLLOW UP INSTRUCTIONS ARE FOLLOWS: 1. Do you have a private Doctor? If you do not have a private doctor, please ask for a resource list of physicians or clinics that may be able to assist you with follow up care. 2. The Emergency Physician has interpreted your x-rays. The X-Ray specialist will also review them. If there is a change in the findings, you will be notified in 48 hours when at all possible. 3. A lab test or culture has been done, your results will be reviewed and you will be notified if you need a change in treatment. ADDITIONAL INSTRUCTIONS AND INFORMATION: 1. Your care today has been supervised by a physician who is specially trained in emergency care. Many problems require more than one evaluation for a complete diagnosis and treatment. We recommend that you schedule your follow up appointment as recommended to ensure complete treatment of you illness or injury. If you are unable to obtain follow up care and continue to have a problem, or if your condition worsens, we recommend that you return to the ED. 2. We are not able to safely determine your condition over the phone nor are we able to give sound medical advice over the phone. For these safety reasons, if you call for medical advice we will ask you to come to the ED for further evaluation. 3. If you have any questions regarding these discharge instructions please call the ED at [phone]. SAFETY INFORMATION: In the interest of safety, wellness, and injury prevention; we encourage you to wear your sealbelt, if you smoke; quite smoking, and we encourage family to use a protective helmet for bicycling and other sporting events that present an increased risk for head injury. IF YOUR SYMPTOMS WORSEN OR NEW SYMPTOMS DEVELOP, OR YOU HAVE CONCERNS ABOUT YOUR CONDITION; OR IF YOUR CONDITION WORSENS WHILE YOU ARE WAITING FOR YOUR FOLLOW UP APPOINTMENT; EITHER CONTACT YOUR PRIMARY CARE DOCTOR, THE PHYSICIAN WHOSE NAME AND NUMBER YOU WERE GIVEN, OR RETURN TO THE ED IMMEDIATELY. Scripts Penicillin V Potassium (PENICILLIN V POTASSIUM) 500 Mg Tablet 500 MG PO BID for infection for 7 Days, #14 TAB Prov: PACO LA APRN 01/08/21 PACO LA APRN Jan 08, 2021 15:43
== END 2021-01-08 17:12 | disposition home or self-care (01) ==
LOC: ER 15:03
DX: K08.89 Other specified disorders of teeth and supporting structures (principal); R22.0 Localized swelling, mass and lump, head; Z88.8 Allergy status to other drugs, medicaments and biological substances
CPT/HCPCS: 99283

== ENCOUNTER 2021-04-08 19:22 | Emergency (ER) | payer OTHER ==
[~2021-04-08] VITALS: Ht 175.3 cm; Wt 79.0 kg
[~2021-04-08 19:22] MED LIST changes: +CLIN-95 PO; -CLIN300C9 PO; +PENI500T PO
[2021-04-08 19:36] VITALS: BP 127/71
[2021-04-08] MEDS ORDERED: PRED50TA PO (19:54)
[2021-04-08] MEDS ORDERED: CYCL-331 PO (19:54)
--- NOTE | 2021-04-08 19:54 | PHYS DOC ---
Past History Past Medical History: No Pertinent History Past Surgical History: Other Additional Past Surgical Histo: right wrist fx repair Alcohol Use: None Drug Use: None General Adult EDM: Chief Complaint: BACK PAIN OR INJURY HPI: HPI: 25-year-old male presents with low back/buttocks pain. He has some radiation down the right posterior thigh. He does remember doing things to cause the pain. He was having a normal day and spent some time at the dog park with his pet. He does not remember lifting anything exceptionally heavy or anywhere movements. He took a nap this afternoon when he woke up he had significant pain in the low back region with radiation down the right posterior leg. No previous history of back injuries. Denies perineal numbness, no loss of bowel or bladder. He has no other complaints this time. Review of Systems: Review of Systems: Constitutional: Denies fever or chills Eyes: Denies change in visual acuity HENT: Denies nasal congestion or sore throat Respiratory: Denies cough or shortness of breath Cardiovascular: Denies chest pain or edema GI: Denies abdominal pain, nausea, vomiting, bloody stools or diarrhea : Denies dysuria Musculoskeletal: Low back pain Integument: Denies rash Neurologic: Denies headache, focal weakness or sensory changes Endocrine: Denies polyuria or polydipsia Lymphatic: Denies swollen glands Psychiatric: Denies depression or anxiety Allergies: Allergies: Allergies Coded Allergies Type Severity Reaction Last Updated Verified camphor Allergy Unknown 04/08/21 Yes eucalyptus Allergy Unknown 04/08/21 Yes menthol Allergy Unknown 04/08/21 Yes petrolatum,white Allergy Unknown 04/08/21 Yes turpentine oil Allergy Unknown 04/08/21 Yes Physical Exam: PE: Constitutional: Well developed, well nourished, no acute distress, non-toxic appearance. [] HENT: Normocephalic, atraumatic, bilateral external ears normal, oropharynx moist, no oral exudates, nose normal. [] Eyes: PERRLA, EOMI, conjunctiva normal, no discharge. [] Neck: Normal range of motion, no tenderness, supple, no stridor. [] Cardiovascular: Heart rate regular rhythm, no murmur [] Lungs & Thorax: Bilateral breath sounds clear to auscultation [] Abdomen: Bowel sounds normal, soft, no tenderness, no masses, no pulsatile masses. [] Skin: Warm, dry, no erythema, no rash. [] Back: Mild tenderness of the bilateral sacroiliac joints with surrounding paraspinal muscle tightness. No bony tenderness of the lumbar spine. [] Extremities: No tenderness, no cyanosis, no clubbing, ROM intact, no edema. [] Neurologic: Alert and oriented X 3, normal motor function, normal sensory function, no focal deficits noted. [] Psychologic: Affect normal, judgement normal, mood normal. [] Current Patient Data: Vital Signs: Vital Signs Date Time Temp Pulse Resp B/P (MAP) Pulse Ox O2 Delivery O2 Flow Rate FiO2 04/08/21 19:36 100.8 114 18 127/71 (89) 99 Room Air EKG: EKG: [] Radiology/Procedures: Radiology/Procedures: [] Heart Score: C/O Chest Pain: N/A Risk Factors: Risk Factors: DM, Current or recent (<one month) smoker, HTN, HLP, family history of CAD, obesity. Risk Scores: Score 0 - 3: 2.5% MACE over next 6 weeks - Discharge Home Score 4 - 6: 20.3% MACE over next 6 weeks - Admit for Clinical Observation Score 7 - 10: 72.7% MACE over next 6 weeks - Early Invasive Strategies Course & Med Decision Making: Course & Med Decision Making Pertinent Labs and Imaging studies reviewed. (See chart for details) Patient appears to have a low back strain or irritation of his bilateral sacroiliac joints. I will treat him with prednisone and Flexeril. We will give the first dose in the ED. He is stable for discharge at this time. [] Dragon Disclaimer: Courtney Disclaimer: This electronic medical record was generated, in whole or in part, using a voice recognition dictation system. Departure Departure: Impression: Primary Impression: Acute lumbar myofascial strain Qualified Codes: S39.012A - Strain of muscle, fascia and tendon of lower back, initial encounter Disposition: HOME / SELF CARE / HOMELESS Condition: STABLE Referrals: PCP,NO (PCP) Patient Instructions: Low Back Strain with Rehab-[facility] Scripts Prednisone (PREDNISONE) 50 Mg Tablet 1 TAB PO DAILY for back strain for 3 Days, #3 TAB Prov: ANGELINA CORONEL DO 04/08/21 Cyclobenzaprine Hcl (CYCLOBENZAPRINE HCL) 10 Mg Tablet 1 TAB PO TID PRN for MUSCLE SPASMS, #30 TAB Prov: ANGELINA CORONEL DO 04/08/21 ANGELINA CORONEL DO Apr 08, 2021 19:54
[2021-04-08] MEDS: CYCLOBENZAPRINE 10 MG TABLET. PO ONE (20:04)
[2021-04-08] MEDS: predniSONE 10 MG TABLET. PO ONE (20:04)
[2021-04-08 20:55] LABS: BACTERIA,URINE FEW /HPF (0-FEW); BILIRUBIN,URINE NEG (NEG); CLARITY,URINE CLEAR; COLOR,URINE YELLOW; GLUCOSE,URINE NEG (NEG); NITRITE,URINE NEG (NEG); SQUAMOUS EPITHELIAL CELL,UR FEW /LPF
== END 2021-04-08 20:15 | disposition home or self-care (01) ==
LOC: ER 19:22
DX: U07.1 COVID-19 (principal); S39.012A Strain of muscle, fascia and tendon of lower back, initial encounter; Z88.5 Allergy status to narcotic agent; Z88.6 Allergy status to analgesic agent; X50.0XXA Overexertion from strenuous movement or load, initial encounter; Y93.89 Activity, other specified; Y92.89 Other specified places as the place of occurrence of the external cause; Y99.8 Other external cause status
CPT/HCPCS: 81001; 99283; C9803; J7512; U0003

== ENCOUNTER 2021-06-24 09:01 | Emergency (ER) | payer OTHER ==
[~2021-06-24] VITALS: Ht 175.3 cm; Wt 82.0 kg
[~2021-06-24 09:01] MED LIST changes: +CYCL10TA19 PO; +PRED50TA PO
[2021-06-24 09:05] VITALS: BP 121/77
[2021-06-24] MEDS ORDERED: IBUPROFEN 600 MG TABLET. PO ONE ×2 (09:20→09:30)
--- NOTE | 2021-06-24 09:37 | PHYS DOC ---
Past History Past Medical History: No Pertinent History Past Surgical History: Other Additional Past Surgical Histo: right wrist fx repair, ingrown toenail removed Alcohol Use: Rarely Drug Use: None General Adult EDM: Chief Complaint: MULTIPLE COMPLAINTS HPI: HPI: Patient is a 26-year-old male coming in for cough, fever, congestion, and sore throat that started this morning when he woke up. Patient does not know of any sick contacts but has not been vaccinated against Covid. No past medical history. Review of Systems: Review of Systems: All other systems within normal limits except for as noted in the HPI Current Medications: Current Meds: Current Medications Medications (Trade) Dose Ordered Sig/Sagar Start Time Stop Time Status Last Admin Dose Admin Ibuprofen (Motrin) 600 mg STK-MED ONCE 06/24/21 09:20 06/24/21 09:20 DC Allergies: Allergies: Allergies Coded Allergies Type Severity Reaction Last Updated Verified camphor Allergy Unknown 06/24/21 Yes eucalyptus Allergy Unknown 06/24/21 Yes menthol Allergy Unknown 06/24/21 Yes petrolatum,white Allergy Unknown 06/24/21 Yes turpentine oil Allergy Unknown 06/24/21 Yes Physical Exam: PE: Constitutional: Well developed, well nourished, no acute distress, non-toxic appearance. [] HENT: Normocephalic, atraumatic, bilateral external ears normal, nose normal. [] Eyes: PERRLA, conjunctiva normal, no discharge. [] Neck: No rigidity, supple, no stridor. [] Cardiovascular: Regular rate and rhythm, brisk cap refill [] Lungs & Thorax: Non labored symmetric respirations, no tachypnea or respiratory distress [] Abdomen: Soft, nondistended. Skin: Warm, dry, no erythema, no rash. [] Back: Unremarkable Extremities: No deformities, range of motion grossly intact, no lower extremity edema [] Neurologic: Alert and oriented X 3, no focal deficits noted. [] Psychologic: Affect normal, judgement normal, mood normal. [] Current Patient Data: Vital Signs: Vital Signs Date Time Temp Pulse Resp B/P (MAP) Pulse Ox O2 Delivery O2 Flow Rate FiO2 06/24/21 09:05 102.2 106 20 121/77 (92) 100 EKG: EKG: [] Radiology/Procedures: Radiology/Procedures: [] Heart Score: C/O Chest Pain: No Risk Factors: Risk Factors: DM, Current or recent (<one month) smoker, HTN, HLP, family history of CAD, obesity. Risk Scores: Score 0 - 3: 2.5% MACE over next 6 weeks - Discharge Home Score 4 - 6: 20.3% MACE over next 6 weeks - Admit for Clinical Observation Score 7 - 10: 72.7% MACE over next 6 weeks - Early Invasive Strategies Course & Med Decision Making: Course & Med Decision Making Pertinent Labs and Imaging studies reviewed. (See chart for details) [] Dragon Disclaimer: Dragon Disclaimer: This electronic medical record was generated, in whole or in part, using a voice recognition dictation system. Departure Departure: Impression: Primary Impression: Person under investigation for COVID-19 Additional Impression: Influenza A Disposition: 01 HOME / SELF CARE / HOMELESS Condition: STABLE Referrals: PCPJANEEN (PCP) Patient Instructions: Influenza A (H1N1) Additional Instructions: You have been tested for or diagnosed with COVID-19. It is an infection caused by a new type of coronavirus. COVID-19 will cause cold-like or mild flu symptoms in most. It can cause more severe symptoms like problems breathing in some. There is no treatment for COVID-19. The body will clear the infection over time. Self-care will help to ease discomfort. Steps to Take: Self-Care Rest as needed. Healthy habits may help you feel better. Steps include: Choose healthy foods including fruits and vegetables. Drink water throughout the day. Get plenty of sleep each night. If you smoke, try to quit. It may ease breathing. Avoid alcohol. Keep Others Healthy The virus can spread to others. Droplets are released every time you sneeze or cough. The droplets can get into the mouth, nose, or eyes of people near you and lead to infection. To lower the chances of spreading COVID-19 to others: Stay at home until your doctor has said it is safe to leave. If you tested positive this will mean staying isolated until both of the following are true: At least 7 days have passed since the start of illness. You are free of fever for at least 72 hours without the use of medicine. During this time: - Avoid public areas, events, or transportation. Do not return to work or school until your doctor has said it is safe to do so. - Call ahead if you need to go to a medical center. Let them know you may have COVID-19. It will help them guide you where to go. They may also ask you to wear a facemask when you come to the office. - If you call for emergency medical services, let them know you may have COVID- 19. While at home: - Try to avoid close contact with others. Stay about 6 feet away. - If possible, spend most of your time in a separate room from others. - Use a face mask if you will be in close contact with others such as sharing a room or vehicle. - Have someone wipe down common surfaces in the home. Use household bench carpenter ev sarah day on areas like doorknobs, counters, or sinks. - Cough or sneeze into a tissue. Throw the tissue away right after use. If a tissue is not available, cough or sneeze into your elbow. - Wash your hands often. Wash them after sneezing or coughing. Use soap and water and wash for at least 20 seconds. Alcohol based hand mercury cell cleaner can be used if soap and water is not available. - Do not prepare food for others. Avoid sharing personal items like forks, spoons, or toothbrushes. - Avoid close contact with pets while you are sick. There is no evidence of the virus passing to pets. This is a safety step until more is known about this virus. Isolation can be frustrating. Social interaction can help. Keep in touch with friends and family through phone and tech options. You can still interact with others in your home, just keep a safe distance of about 6 feet. Follow-up: Your doctors office will check in with you to see if there are any changes in your health. You may be asked to keep track of symptoms to share with them. They will also let you know when you are clear to be in public again. Problems to Look Out For: Contact your doctor if your recovery is not going as you expect. Get emergency care if you have problems such as: - Trouble breathing - Nonstop chest pain or pressure - Changes in awareness, confusion, or problems waking - Lips or face have bluish color - Worsening of symptoms If you think you have an emergency, call for emergency medical services right away. [facility] Oseltamivir Phosphate (TAMIFLU) 75 Mg Capsule 1 CAP PO BID for influenza for 5 Days, #10 CAP Prov: SOPHIE WATSON MD 06/24/21 SOPHIE WATSON MD Jun 24, 2021 09:36
[2021-06-24 10:07] LABS: INFLUENZA B PATIENT NEGATIVE (NEGATIVE)
[2021-06-24 10:09] LABS: INFLUENZA A PATIENT POSITIVE (NEGATIVE)
[2021-06-24] MEDS ORDERED: OSEL75CA PO (10:26)
== END 2021-06-24 10:40 | disposition home or self-care (01) ==
LOC: ER 09:01
DX: J10.1 Influenza due to other identified influenza virus with other respiratory manifestations (principal); Z20.822 Contact with and (suspected) exposure to COVID-19; Z88.8 Allergy status to other drugs, medicaments and biological substances
CPT/HCPCS: 87070; 87804; 87880; 99283; C9803; U0003